=== PATIENT | female | born 1975 | race Hispanic/Latino ===

== ENCOUNTER 2018-02-25 09:44 | Emergency (ER) | payer OTHER ==
[2018-02-25 09:51] VITALS: O2SAT 98
[2018-02-25] MEDS ORDERED: Sodium Chloride 0.9% 1,000 ML IV STA (10:36)
--- NOTE | 2018-02-25 11:00 | ED PDOC ---
HPI: Back Time Seen by Provider: 02/25/18 10:29 Chief Complaint (Nursing): Back Pain Chief Complaint (Provider): Back Pain History Per: Patient History/Exam Limitations: no limitations Onset/Duration Of Symptoms: Days (x3) Current Symptoms Are (Timing): Still Present Additional Complaint(s): Leti Devries is a 42 year old female presenting for evaluation of right f lank pain associated with a fever x3 days. Patient reports seeing her PMD yesterday and states she was prescribed antibiotics and pain medications. Patient reports taking her medications as prescribed with no improvement of symptoms. Patient admits to some dysuria, but denies any nausea, vomiting, or diarrhea. Of note, patient reports a history of right sided kidney stones in the past. PMD: Non-[facility] Provider Past Medical History Reviewed: Historical Data, Nursing Documentation, Vital Signs Vital Signs: Last Vital Signs Temp 98.0 F 02/25/18 09:50 Pulse 86 02/25/18 09:50 Resp 18 02/25/18 09:50 BP 128/74 02/25/18 09:50 Pulse Ox 98 02/25/18 09:50 - Medical History PMH: Hypercholesterolemia, Kidney Stones - Surgical History Surgical History: No Surg Hx - Family History Family History: States: Unknown Family Hx - Allergies Allergies/Adverse Reactions: Allergies Allergy/AdvReac Type Severity Reaction Status Date / Time No Known Allergies Allergy Verified 02/25/18 10:29 Review of Systems ROS Statement: Except As Marked, All Systems Reviewed And Found Negative Constitutional: Positive for: Fever Gastrointestinal: Negative for: Nausea, Vomiting, Diarrhea Genitourinary Female: Positive for: Dysuria Musculoskeletal: Positive for: Other (right flank pain) Physical Exam - Reviewed Nursing Documentation Reviewed: Yes Vital Signs Reviewed: Yes - Physical Exam Appears: Positive for: Non-toxic, No Acute Distress Head Exam: Positive for: ATRAUMATIC, NORMAL INSPECTION, NORMOCEPHALIC Skin: Positive for: Normal Color, Warm, Dry. Negative for: Rash Eye Exam: Positive for: EOMI, Normal appearance, PERRL Neck: Positive for: Normal, Painless ROM Cardiovascular/Chest: Positive for: Regular Rate, Rhythm. Negative for: Murmur Respiratory: Positive for: Normal Breath Sounds. Negative for: Respiratory Distress Gastrointestinal/Abdominal: Positive for: Soft, Tenderness (mild RLQ). Negative for: Guarding, Rebound Back: Positive for: Normal Inspection. Negative for: L CVA Tenderness, R CVA Tenderness, Vertebral Tenderness Extremity: Positive for: Normal ROM. Negative for: Pedal Edema, Deformity Neurologic/Psych: Positive for: Alert, Oriented. Negative for: Motor/Sensory Deficits - Laboratory Results Result Diagrams: 02/25/18 11:15 02/25/18 11:15 - ECG O2 Sat by Pulse Oximetry: 98 (RA) Pulse Ox Interpretation: Normal Medical Decision Making Medical Decision Makin Plan: -Beta-HCG -CMP -CBC -1L NS at 150mL/hr -Blood culture -Urine culture -UA -Reevaluation Based on Beta HCG and US results, cannot rule out early vs failed . No stone seen on renal US. Pt to return 48 hrs for repeat beta HCG and reeval. Will continue antibiotics Rx'ed by PMD Scribe Attestation: Documented by Jani Yañez, acting as a scribe for Fritz Bridges MD. Provider Scribe Attestation: All medical record entries made by the Scribe were at my direction and personally dictated by me. I have reviewed the chart and agree that the record accurately reflects my personal performance of the history, physical exam, medical decision making, and the department course for this patient. I have also personally directed, reviewed, and agree with the discharge instructions and disposition. Disposition - Clinical Impression Clinical Impression: UTI (urinary tract infection), Missed ab - Patient ED Disposition Is Patient to be Admitted: No Counseled Patient/Family Regarding: Studies Performed, Diagnosis, Need For Followup - Disposition Referrals: [facility] [Outside] Disposition: Routine/Home Disposition Time: 14:34 Condition: FAIR Instructions: Urinary Tract Infections in Adults, Miscarriage Forms: [employer] (Greek)
[2018-02-25 11:19] LABS: BASO % 0.5 % (0.0-2.0); EOS # 0.1 K/uL (0.0-0.7); EOS % 1.4 % (0.0-4.0); HEMOGLOBIN 13.3 g/dL (12.0-16.0); LYMPH # 1.4 K/uL (1.0-4.3); LYMPH % 19.3 % (20.0-40.0); MEAN CELL VOLUME 92.3 fl (81.0-99.0); MEAN CORPUSCULAR HEMOGLOBIN 30.7 pg (27.0-31.0); MEAN CORPUSCULAR HGB CONC 33.3 g/dL (33.0-37.0); MEAN PLATELET VOLUME 7.8 fl (7.2-11.7); MONO # 0.8 K/uL (0.0-0.8); MONO % 11.8 % (0.0-10.0); NEUT # 4.8 K/uL (1.8-7.0); RBC 4.34 Mil/uL (3.80-5.20); RED CELL DISTRIBUTION WIDTH 12.5 % (11.5-14.5); WHITE BLOOD COUNT 7.1 K/uL (4.8-10.8)
[2018-02-25 11:31] LABS: ALB/GLOB RATIO 1.1 (1.0-2.1); ALBUMIN 3.9 g/dL (3.5-5.0); ALT/SGPT 19 U/L (9-52); AST/SGOT 18 U/L (14-36); BLOOD UREA NITROGEN 17 mg/dl (7-17); CALCIUM 9.4 mg/dL (8.4-10.2); GFR NON-AFRICAN AMERICAN > 60
[2018-02-25 11:45] LABS: SQUAMOUS EPITHIAL 36 /hpf (0-5); URINE BACTERIA MOD (<OCC); URINE BILIRUBIN NEGATIVE (NEGATIVE); URINE BLOOD NEGATIVE (NEGATIVE); URINE CLARITY CLOUDY (Clear); URINE COLOR AMBER (YELLOW); URINE GLUCOSE (UA) 50 mg/dL (Normal); URINE LEUKOCYTE ESTERASE NEG Leu/uL (Negative); URINE PROTEIN 30 mg/dL (NEGATIVE); URINE UROBILINOGEN 0.2-1.0 mg/dL (0.2-1.0)
--- NOTE | 2018-02-25 14:02 | US ---
Date of service: 02/25/2018 PROCEDURE: Ultrasound of the Kidneys HISTORY: kidney stone COMPARISON: None available. TECHNIQUE: Sonogram of the kidneys. FINDINGS: RIGHT KIDNEY: Measures: 10.2 x 5.3 x 4.2 cm. Normal in size, contour and echogenicity. No stone, solid mass lesion or hydronephrosis visualized. LEFT KIDNEY: Measures: 10.5 x 4.8 x 4.4 cm. Normal in size, contour and echogenicity. No stone, solid mass lesion or hydronephrosis visualized. OTHER FINDINGS: None. IMPRESSION: No definite obstructive uropathy bilaterally. No cystic or solid renal mass appreciated bilaterally or urolithiasis.
--- NOTE | 2018-02-25 14:13 | US ---
Date of service: 02/25/2018 HISTORY: r/o ectopic; last menstrual period reported 01/30/2018 suggesting a 3 week 5 day gestation. COMPARISON: None available. TECHNIQUE: Transabdominal and transvaginal pelvic ultrasound was performed with longitudinal and transverse images submitted for interpretation. FINDINGS: UTERUS: Measures 7.3 x 5.5 x 4.2 cm. Uterus is normal in size appearing anteverted. An anterior mid fundal sub mucus fibroid is identified measuring 1.3 x 1.4 x 1.1 cm with remaining myometrium unremarkable. ENDOMETRIUM: Measures 9.0 mm in diameter. Trace fluid is seen in the endometrial cavity. No intrauterine gestation appreciable. CERVIX: Cervical length is 4.2 cm with heterogeneous changes identified at the upper to mid cervix potentially reflecting limited gas in the endometrial canal. RIGHT OVARY: Measures 2.4 x 1.5 x 1.1 cm. No solid mass. Normal flow. LEFT OVARY: Measures 3.1 x 2.0 x 1.7 cm. No solid mass. Intra-ovarian arterial blood flow is identified. Heterogeneous structure at the inferior cervix measures 2.0 x 1.8 x 1.7 cm reflecting likely corpus luteum cyst. A simple cyst is appreciated superior to it measuring 1.3 x 0.9 x 0.9 cm. FREE FLUID: Trace fluid is seen the cul-de-sac as well as posterior to the upper uterus. OTHER FINDINGS: None. IMPRESSION: 1. Trace endometrial fluid is appreciate without defined gestational sac. Early intrauterine but nonvisualized gestation not completely excluded. Failure of gestation is included in the differential diagnosis. Serial serum beta HCG analysis is advised as well as follow-up ultrasonography in 1 week. An ectopic is not definitively demonstrated but is also not excluded either. 2. The corpus luteum cyst left ovary. Simple cyst 1.3 cm also seen in left ovary. 3. Small submucous fibroid anterior mid fundus 1.4 cm greatest dimension. 4. Nonspecific inhomogeneous changes upper cervix, potentially related to potential gas in upper endocervical canal.
[2018-02-25 14:44] VITALS: BP 103/63; PULSE 66; RESP 16; TEMP 98
== END 2018-02-25 14:42 | disposition home or self-care (01) ==
LOC: H.ER 09:44
DX: O02.1 Missed abortion (principal); N39.0 Urinary tract infection, site not specified; E78.00 Pure hypercholesterolemia, unspecified
CPT/HCPCS: 76770; 76817; 80053; 81003; 81025; 84702; 85025; 87040; 87086; 96360; 96361; 99285; J7030

== ENCOUNTER 2018-02-28 17:48 | Emergency (ER) | payer OTHER ==
[2018-02-28 17:53] VITALS: BP 118/77; PULSE 80; RESP 18; TEMP 98.2; O2SAT 99
--- NOTE | 2018-02-28 18:39 | ED PDOC ---
HPI: General Adult Time Seen by Provider: 02/28/18 18:29 Chief Complaint (Nursing): Abnormal Labs Chief Complaint (Provider): Abnormal Labs History Per: Patient History/Exam Limitations: no limitations Onset/Duration Of Symptoms: Days (x 3) Current Symptoms Are (Timing): Better Additional Complaint(s): 42 year old female presents to the ED for follow up. Patient was seen in this ED on 02/25 for flank pain and noted to have Beta-HCG of 25. Was given instructions to follow up with repeat beta in 2 days. Currently reports minimal pain and no bleeding. PMD: none Past Medical History Reviewed: Historical Data, Nursing Documentation, Vital Signs Vital Signs: Last Vital Signs Temp 98.2 F 02/28/18 17:50 Pulse 80 02/28/18 17:50 Resp 18 02/28/18 17:50 BP 118/77 02/28/18 17:50 Pulse Ox 99 02/28/18 17:50 - Medical History PMH: Hypercholesterolemia, Kidney Stones - Surgical History Surgical History: No Surg Hx - Family History Family History: States: Unknown Family Hx - Allergies Allergies/Adverse Reactions: Allergies Allergy/AdvReac Type Severity Reaction Status Date / Time No Known Allergies Allergy Verified 02/25/18 10:29 Review of Systems ROS Statement: Except As Marked, All Systems Reviewed And Found Negative Genitourinary Female: Negative for: Vaginal Discharge, Vaginal Bleeding Musculoskeletal: Positive for: Other (mild flank pain) Physical Exam - Reviewed Nursing Documentation Reviewed: Yes Vital Signs Reviewed: Yes - Physical Exam Appears: Positive for: Non-toxic, No Acute Distress Head Exam: Positive for: ATRAUMATIC, NORMAL INSPECTION, NORMOCEPHALIC Skin: Positive for: Normal Color, Warm, Dry Eye Exam: Positive for: EOMI, Normal appearance, PERRL Cardiovascular/Chest: Positive for: Regular Rate, Rhythm. Negative for: Murmur Respiratory: Positive for: Normal Breath Sounds. Negative for: Respiratory Distress Gastrointestinal/Abdominal: Positive for: Normal Exam, Soft. Negative for: Tenderness Neurologic/Psych: Positive for: Alert, Oriented. Negative for: Motor/Sensory Deficits - ECG O2 Sat by Pulse Oximetry: 99 (RA) Pulse Ox Interpretation: Normal - Progress ED Course And Treament: repeat beta hcg 13. Medical Decision Making Medical Decision Makin:08 --Ob US --Blood type --Beta-HCG Scribe Attestation: Documented by Nat Pelaez, acting as a scribe for Bry Infante PA-C Provider Scribe Attestation: All medical record entries made by the Scribe were at my direction and personally dictated by me. I have reviewed the chart and agree that the record accurately reflects my personal performance of the history, physical exam, medical decision making, and the department course for this patient. I have also personally directed, reviewed, and agree with the discharge instructions and disposition. Disposition - Clinical Impression Clinical Impression: Threatened miscarriage in early - Patient ED Disposition Is Patient to be Admitted: No - Disposition Disposition: Routine/Home Disposition Time: 19:09 Condition: FAIR Additional Instructions: F/U WITH PMD OR [facility] IN 2-3 DAYS FOR REPEAT BETA HCG Instructions: Threatened Miscarriage (DC)
== END 2018-02-28 19:33 | disposition home or self-care (01) ==
LOC: H.ER 17:48
DX: O20.0 Threatened abortion (principal); E78.00 Pure hypercholesterolemia, unspecified